=== PATIENT | male | born 1965 | race Caucasian/White ===

== ENCOUNTER 2018-06-19 00:36 | Observation (INO) | payer OTHER ==
[~2018-06-19] VITALS: Ht 185.4 cm; Wt 72.7 kg
[2018-06-19 00:59] LABS: BASOPHILS # (AUTO) 0.05 x10^3/uL (0-0.1); BASOPHILS % (AUTO) 1 % (0-1); EOSINOPHILS # (AUTO) 0.54 x10^3/uL (0-0.4); EOSINOPHILS % (AUTO) 6 % (1-7); LYMPHOCYTES # (AUTO) 2.78 x10^3/uL (1-3.4); LYMPHOCYTES % (AUTO) 33 % (22-44); MD NO; MEAN CORPUSCULAR HEMOGLOBIN 34.1 pg (27.5-34.5); MEAN CORPUSCULAR HGB CONC 34.6 g/dL (33.2-36.2); MEAN CORPUSCULAR VOLUME 98.7 fL (81-97); MEAN PLATELET VOLUME 6.7 fL (7.4-10.4); MONOCYTES # (AUTO) 0.53 x10^3/uL (0.2-0.8); MONOCYTES % (AUTO) 6 % (2-9); NEUTROPHILS % (AUTO) 54 % (42-75); PLATELET COUNT 132 x10^3/uL (130-400); RED BLOOD COUNT 5.78 x10^6/uL (4.38-5.82); RED CELL DISTRIBUTION WIDTH 15.2 % (9.4-14.8)
[2018-06-19] MEDS ORDERED: CLON2TAB9 PO (01:03)
[2018-06-19] MEDS ORDERED: LORA2TAB99 PO (01:03)
[2018-06-19 01:12] LABS: ALBUMIN 3.6 g/dL (3.4-5.0); ANION GAP 8 mmol/L (5-15); CALCIUM 8.1 mg/dL (8.5-10.1); CHLORIDE 108 mmol/L (98-107); CREATININE 0.84 mg/dL (0.7-1.3); SALICYLATE LEVEL 7.8 mg/dL (2.8-20.0)
[2018-06-19 01:27] LABS: ACETAMINOPHEN < 2 mcg/mL (10-30)
[2018-06-19 02:52] LABS: AMPHETAMINE SCREEN, URINE Negative (Negative); BARBITURATE SCREEN, URINE Negative (Negative); BENZODIAZEPINE SCREEN, URINE Positive (Negative); CANNABINOID SCREEN, URINE Negative (Negative); COCAINE SCREEN, URINE Negative (Negative); METHADONE SCREEN, URINE Negative (Negative); OPIATE SCREEN, URINE Negative (Negative)
[2018-06-19] MEDS ORDERED: LORazepam 1MG TABLET PO PRN (12:00)
[2018-06-19] MEDS ORDERED: CEPHALEXIN 500 MG CAPSULE ONE (13:44)
[2018-06-19] MEDS: CEPHALEXIN 500 MG CAPSULE PO SCH ×3 (14:21→21:14)
[2018-06-19 19:59] VITALS: BP 110/73
[2018-06-20] MEDS: CEPHALEXIN 500 MG CAPSULE PO SCH ×4 (06:10→21:05)
[2018-06-20 08:11] VITALS: BP 116/86
[2018-06-20] MEDS ORDERED: MIRT30TA3 PO (08:38)
[2018-06-20] MEDS ORDERED: CLON1TAB11 PO (08:38)
[2018-06-20] MEDS ORDERED: TRAZ-137 PO (08:38)
[2018-06-20] MEDS ORDERED: GABA-826 PO (08:38)
[2018-06-20] MEDS ORDERED: PRAZ1CAP2 PO (08:38)
[2018-06-20] MEDS ORDERED: BUSP10TA PO (08:38)
[2018-06-20] MEDS ORDERED: FLUO40CA9 PO (08:38)
[2018-06-20] MEDS ORDERED: ARIP10TA33 PO (08:38)
[2018-06-20] MEDS ORDERED: PROP80CA3 PO (08:38)
[2018-06-20] MEDS: PROPRANOLOl 80 MG CAP.SA.24H PO SCH ×2 (10:30→21:06)
[2018-06-20] MEDS: ARIPIPRAZOLE 10 MG TABLET PO SCH (10:40)
[2018-06-20] MEDS: IBUPROFEN 200 MG TABLET PO PRN (10:41)
[2018-06-20] MEDS: FLUOXETINE HCL 20 MG CAPSULE PO SCH (10:41)
[2018-06-20] MEDS: GABAPENTIN 300 MG CAPSULE PO PRN (10:41)
[2018-06-20] MEDS: BUSPIRONE 10 MG TABLET PO SCH ×2 (10:44→21:05)
[2018-06-20 19:43] VITALS: BP 101/65
[2018-06-20] MEDS: TRAZODONE 150MG TABLET PO SCH (21:05)
[2018-06-20] MEDS: PRAZOSIN 1 MG CAPSULE PO SCH (21:05)
[2018-06-20] MEDS: MIRTAZAPINE 30 MG TAB.RAPDIS PO SCH (21:08)
[2018-06-21] MEDS: CEPHALEXIN 500 MG CAPSULE PO SCH ×4 (06:35→20:14)
[2018-06-21 08:00] VITALS: BP 118/62
[2018-06-21] MEDS: BUSPIRONE 10 MG TABLET PO SCH ×2 (08:29→20:14)
[2018-06-21] MEDS: ARIPIPRAZOLE 10 MG TABLET PO SCH (08:29)
[2018-06-21] MEDS: FLUOXETINE HCL 20 MG CAPSULE PO SCH (08:29)
[2018-06-21] MEDS: IBUPROFEN 200 MG TABLET PO PRN (08:30)
[2018-06-21] MEDS: PROPRANOLOl 80 MG CAP.SA.24H PO SCH ×2 (08:31→20:16)
[2018-06-21] MEDS: NICOTINE GUM 2 MG BC PRN ×2 (10:10→16:24)
[2018-06-21 19:45] VITALS: BP 122/76
[2018-06-21] MEDS: TRAZODONE 150MG TABLET PO SCH (20:15)
[2018-06-21] MEDS: PRAZOSIN 1 MG CAPSULE PO SCH (20:15)
[2018-06-21] MEDS: MIRTAZAPINE 30 MG TAB.RAPDIS PO SCH (20:17)
[2018-06-22] MEDS: NICOTINE GUM 2 MG BC PRN (04:26)
[2018-06-22] MEDS: CEPHALEXIN 500 MG CAPSULE PO SCH ×4 (05:39→20:46)
[2018-06-22 08:30] VITALS: BP 115/77
[2018-06-22] MEDS: PROPRANOLOl 80 MG CAP.SA.24H PO SCH ×2 (08:40→20:45)
[2018-06-22] MEDS: ARIPIPRAZOLE 10 MG TABLET PO SCH (08:40)
[2018-06-22] MEDS: BUSPIRONE 10 MG TABLET PO SCH ×2 (08:40→20:46)
[2018-06-22] MEDS: FLUOXETINE HCL 20 MG CAPSULE PO SCH (08:40)
[2018-06-22] MEDS: ASPIRIN 81 MG TABLET CHEW PO SCH (09:10)
[2018-06-22 19:32] VITALS: BP 132/87
[2018-06-22] MEDS: TRAZODONE 150MG TABLET PO SCH (20:45)
[2018-06-22] MEDS: MIRTAZAPINE 30 MG TAB.RAPDIS PO SCH ×2 (20:46→20:49)
[2018-06-22] MEDS: PRAZOSIN 1 MG CAPSULE PO SCH (20:46)
[2018-06-23] VITALS (10 sets, daily range): BP systolic 104–124; BP diastolic 65–80
[2018-06-23] MEDS: GABAPENTIN 300 MG CAPSULE PO PRN (00:27)
[2018-06-23 05:17] LABS: BASOPHILS # (AUTO) 0.05 x10^3/uL (0-0.1); BASOPHILS % (AUTO) 1 % (0-1); EOSINOPHILS # (AUTO) 0.47 x10^3/uL (0-0.4); EOSINOPHILS % (AUTO) 4 % (1-7); LYMPHOCYTES # (AUTO) 2.12 x10^3/uL (1-3.4); LYMPHOCYTES % (AUTO) 20 % (22-44); MD NO; MEAN CORPUSCULAR HEMOGLOBIN 33.7 pg (27.5-34.5); MEAN CORPUSCULAR HGB CONC 34.1 g/dL (33.2-36.2); MEAN CORPUSCULAR VOLUME 98.8 fL (81-97); MONOCYTES # (AUTO) 0.64 x10^3/uL (0.2-0.8); MONOCYTES % (AUTO) 6 % (2-9); NEUTROPHILS # (AUTO) 7.49 x10^3/uL (1.8-6.8); NEUTROPHILS % (AUTO) 70 % (42-75); PLATELET COUNT 163 x10^3/uL (130-400); RED BLOOD COUNT 5.53 x10^6/uL (4.38-5.82)
[2018-06-23] MEDS: CEPHALEXIN 500 MG CAPSULE PO SCH ×4 (07:08→20:57)
[2018-06-23] MEDS: FLUOXETINE HCL 20 MG CAPSULE PO SCH (08:19)
[2018-06-23] MEDS: ASPIRIN 81 MG TABLET CHEW PO SCH (08:19)
[2018-06-23] MEDS: ARIPIPRAZOLE 10 MG TABLET PO SCH (08:19)
[2018-06-23] MEDS: BUSPIRONE 10 MG TABLET PO SCH ×2 (08:19→20:57)
[2018-06-23] MEDS: PROPRANOLOl 80 MG CAP.SA.24H PO SCH ×2 (08:20→20:56)
[2018-06-23] MEDS: PRAZOSIN 1 MG CAPSULE PO SCH (20:56)
[2018-06-23] MEDS: MIRTAZAPINE 30 MG TAB.RAPDIS PO SCH (20:57)
[2018-06-23] MEDS: TRAZODONE 150MG TABLET PO SCH (20:57)
[2018-06-24] MEDS ORDERED: ACETAMINOPHEN 500 MG TABLET PO PRN (07:00)
[2018-06-24] MEDS: CEPHALEXIN 500 MG CAPSULE PO SCH ×2 (07:46→11:26)
[2018-06-24 08:08] VITALS: BP 121/73
[2018-06-24] MEDS: ARIPIPRAZOLE 10 MG TABLET PO SCH (08:46)
[2018-06-24] MEDS: BUSPIRONE 10 MG TABLET PO SCH ×2 (08:47→20:41)
[2018-06-24] MEDS: ASPIRIN 81 MG TABLET CHEW PO SCH (08:47)
[2018-06-24] MEDS: FLUOXETINE HCL 20 MG CAPSULE PO SCH (08:48)
[2018-06-24] MEDS: PROPRANOLOl 80 MG CAP.SA.24H PO SCH ×2 (08:59→20:42)
[2018-06-24] MEDS: MIRTAZAPINE 30 MG TAB.RAPDIS PO SCH (20:41)
[2018-06-24] MEDS: PRAZOSIN 1 MG CAPSULE PO SCH (20:41)
[2018-06-24] MEDS: TRAZODONE 150MG TABLET PO SCH (20:41)
[2018-06-24 20:50] VITALS: BP 117/77
[2018-06-25] MEDS: BUSPIRONE 10 MG TABLET PO SCH ×2 (08:17→20:00)
[2018-06-25] MEDS: ARIPIPRAZOLE 10 MG TABLET PO SCH (08:17)
[2018-06-25] MEDS: FLUOXETINE HCL 20 MG CAPSULE PO SCH (08:18)
[2018-06-25] MEDS: ASPIRIN 81 MG TABLET CHEW PO SCH (08:18)
[2018-06-25] MEDS: PROPRANOLOl 80 MG CAP.SA.24H PO SCH ×2 (08:18→20:01)
[2018-06-25 08:30] VITALS: BP 95/55
[2018-06-25 16:51] VITALS: BP 109/70
[2018-06-25 19:37] VITALS: BP 118/74
[2018-06-25] MEDS: TRAZODONE 150MG TABLET PO SCH (20:00)
[2018-06-25] MEDS: MIRTAZAPINE 30 MG TAB.RAPDIS PO SCH (20:01)
[2018-06-25] MEDS: PRAZOSIN 1 MG CAPSULE PO SCH (20:01)
[2018-06-26 08:10] VITALS: BP 111/64
[2018-06-26] MEDS: PROPRANOLOl 80 MG CAP.SA.24H PO SCH ×2 (08:10→20:02)
[2018-06-26] MEDS: FLUOXETINE HCL 20 MG CAPSULE PO SCH (08:10)
[2018-06-26] MEDS: BUSPIRONE 10 MG TABLET PO SCH ×2 (08:10→20:02)
[2018-06-26] MEDS: ASPIRIN 81 MG TABLET CHEW PO SCH (08:10)
[2018-06-26] MEDS: ARIPIPRAZOLE 10 MG TABLET PO SCH (08:10)
[2018-06-26] MEDS: TRAZODONE 150MG TABLET PO SCH (20:01)
[2018-06-26] MEDS: PRAZOSIN 1 MG CAPSULE PO SCH (20:01)
[2018-06-26] MEDS: MIRTAZAPINE 30 MG TAB.RAPDIS PO SCH (20:02)
[2018-06-26 20:07] VITALS: BP 116/69
[2018-06-27 07:51] VITALS: BP 109/67
[2018-06-27] MEDS: ASPIRIN 81 MG TABLET CHEW PO SCH (08:12)
[2018-06-27] MEDS: PROPRANOLOl 80 MG CAP.SA.24H PO SCH ×2 (08:12→20:24)
[2018-06-27] MEDS: BUSPIRONE 10 MG TABLET PO SCH ×2 (08:12→20:25)
[2018-06-27] MEDS: ARIPIPRAZOLE 10 MG TABLET PO SCH (08:12)
[2018-06-27] MEDS: FLUOXETINE HCL 20 MG CAPSULE PO SCH (08:12)
[2018-06-27 19:43] VITALS: BP 116/79
[2018-06-27] MEDS: PRAZOSIN 1 MG CAPSULE PO SCH (20:25)
[2018-06-27] MEDS: TRAZODONE 150MG TABLET PO SCH (20:25)
[2018-06-27] MEDS: MIRTAZAPINE 30 MG TAB.RAPDIS PO SCH (20:25)
[2018-06-28 08:00] VITALS: BP 103/67
[2018-06-28] MEDS: PROPRANOLOl 80 MG CAP.SA.24H PO SCH ×2 (08:44→20:30)
[2018-06-28] MEDS: FLUOXETINE HCL 20 MG CAPSULE PO SCH (08:44)
[2018-06-28] MEDS: ASPIRIN 81 MG TABLET CHEW PO SCH (08:44)
[2018-06-28] MEDS: BUSPIRONE 10 MG TABLET PO SCH ×2 (08:44→20:29)
[2018-06-28] MEDS: ARIPIPRAZOLE 10 MG TABLET PO SCH (08:45)
[2018-06-28] MEDS: MIRTAZAPINE 30 MG TAB.RAPDIS PO SCH (20:29)
[2018-06-28] MEDS: PRAZOSIN 1 MG CAPSULE PO SCH (20:30)
[2018-06-28] MEDS: TRAZODONE 150MG TABLET PO SCH (20:30)
[2018-06-28 20:31] VITALS: BP 111/72
[2018-06-29 08:05] VITALS: BP 109/64
[2018-06-29] MEDS: PROPRANOLOl 80 MG CAP.SA.24H PO SCH ×2 (08:43→20:11)
[2018-06-29] MEDS: ASPIRIN 81 MG TABLET CHEW PO SCH (08:44)
[2018-06-29] MEDS: FLUOXETINE HCL 20 MG CAPSULE PO SCH (08:44)
[2018-06-29] MEDS: ARIPIPRAZOLE 10 MG TABLET PO SCH (08:45)
[2018-06-29] MEDS: BUSPIRONE 10 MG TABLET PO SCH ×2 (08:45→20:11)
[2018-06-29 19:59] VITALS: BP 122/76
[2018-06-29] MEDS: PRAZOSIN 1 MG CAPSULE PO SCH (20:10)
[2018-06-29] MEDS: MIRTAZAPINE 30 MG TAB.RAPDIS PO SCH (20:11)
[2018-06-29] MEDS: TRAZODONE 150MG TABLET PO SCH (20:11)
[2018-06-30 08:02] VITALS: BP 108/76
[2018-06-30] MEDS: FLUOXETINE HCL 20 MG CAPSULE PO SCH (08:26)
[2018-06-30] MEDS: ASPIRIN 81 MG TABLET CHEW PO SCH (08:26)
[2018-06-30] MEDS: PROPRANOLOl 80 MG CAP.SA.24H PO SCH ×2 (08:27→20:09)
[2018-06-30] MEDS: BUSPIRONE 10 MG TABLET PO SCH ×2 (08:27→20:09)
[2018-06-30] MEDS: ARIPIPRAZOLE 10 MG TABLET PO SCH (08:27)
[2018-06-30 19:52] VITALS: BP 119/75
[2018-06-30] MEDS: TRAZODONE 150MG TABLET PO SCH (20:09)
[2018-06-30] MEDS: PRAZOSIN 1 MG CAPSULE PO SCH (20:09)
[2018-06-30] MEDS: MIRTAZAPINE 30 MG TAB.RAPDIS PO SCH (20:10)
[2018-07-01 07:51] VITALS: BP 105/68
[2018-07-01] MEDS: FLUOXETINE HCL 20 MG CAPSULE PO SCH (08:34)
[2018-07-01] MEDS: ASPIRIN 81 MG TABLET CHEW PO SCH (08:34)
[2018-07-01] MEDS: BUSPIRONE 10 MG TABLET PO SCH ×2 (08:34→21:00)
[2018-07-01] MEDS: ARIPIPRAZOLE 10 MG TABLET PO SCH (08:34)
[2018-07-01] MEDS: PROPRANOLOl 80 MG CAP.SA.24H PO SCH ×2 (08:35→21:00)
[2018-07-01] MEDS: NICOTINE GUM 2 MG BC PRN (16:36)
[2018-07-01 19:38] VITALS: BP 121/72
[2018-07-01] MEDS: MIRTAZAPINE 30 MG TAB.RAPDIS PO SCH (20:09)
[2018-07-01] MEDS: PRAZOSIN 1 MG CAPSULE PO SCH (21:00)
[2018-07-01] MEDS: TRAZODONE 150MG TABLET PO SCH (21:00)
[2018-07-02 08:15] VITALS: BP 113/70
[2018-07-02] MEDS: FLUOXETINE HCL 20 MG CAPSULE PO SCH (09:05)
[2018-07-02] MEDS: ASPIRIN 81 MG TABLET CHEW PO SCH (09:05)
[2018-07-02] MEDS: ARIPIPRAZOLE 10 MG TABLET PO SCH (09:05)
[2018-07-02] MEDS: PROPRANOLOl 80 MG CAP.SA.24H PO SCH ×2 (09:05→20:31)
[2018-07-02] MEDS: BUSPIRONE 10 MG TABLET PO SCH ×2 (09:05→20:32)
[2018-07-02 19:05] VITALS: BP 110/63
[2018-07-02] MEDS: PRAZOSIN 1 MG CAPSULE PO SCH (20:30)
[2018-07-02] MEDS: MIRTAZAPINE 30 MG TAB.RAPDIS PO SCH (20:31)
[2018-07-02] MEDS: TRAZODONE 150MG TABLET PO SCH (20:32)
[2018-07-03 07:45] VITALS: BP 101/64
[2018-07-03] MEDS: BUSPIRONE 10 MG TABLET PO SCH (09:00)
[2018-07-03] MEDS: PROPRANOLOl 80 MG CAP.SA.24H PO SCH (09:35)
[2018-07-03] MEDS: ASPIRIN 81 MG TABLET CHEW PO SCH (09:35)
[2018-07-03] MEDS: ARIPIPRAZOLE 10 MG TABLET PO SCH (09:36)
[2018-07-03] MEDS: FLUOXETINE HCL 20 MG CAPSULE PO SCH (09:36)
== END 2018-07-03 13:25 | disposition home or self-care (01) ==
LOC: ED 09:28 → EDIP 09:29 → ED 09:41 → 2N 13:53
PROVIDERS: ADMIT Hospitalist; ATTEND Hospitalist
DX: R45.851 Suicidal ideations (principal); L03.115 Cellulitis of right lower limb; F25.9 Schizoaffective disorder, unspecified; F10.229 Alcohol dependence with intoxication, unspecified; D75.1 Secondary polycythemia; Z88.0 Allergy status to penicillin; Z91.19 Patient's noncompliance with other medical treatment and regimen
CPT/HCPCS: 36415; 80048; 80307; 80329; 82040; 85025; 99285; G0378; G0480